=== PATIENT | female | born 1965 | race African-American/Black ===

== ENCOUNTER 2024-06-29 07:34 | Outpatient (CLI) | payer MEDICARE, MEDICAID, SELFPAY ==
--- NOTE | 2024-06-29 10:21 | PCM.OPRPT ---
Operative Report (Standard) Operative Information Date of Procedure: 06/29/24 Pre-Operative Diagnosis: End-stage renal disease Post-Operative Diagnosis: Same Surgery/Procedure Performed: Bilateral upper extremity venogram bioprocess engineer: No Type of Anesthesia: None Procedure Start Time: 09:00 Procedure Stop Time: 09:30 Select all DRAINS/GRAFTS/IMPLANTS that apply: None Estimated Blood Loss: 1 Specimen collected: No Description of surgery: HPI: Patient is a 59-year-old female with end-stage renal disease currently on dialysis via right femoral tunneled catheter. She has had multiple upper extremity access procedures in the past all of which have subsequently failed. 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 She presents now for venogram to assess the central system for patency and determine any possible access options. Description of procedure: Upon obtaining form consent and verification correct patient procedure site the patient was taken to the [facility] where she was positioned prepped and draped in usual sterile fashion. Timeout was performed and the patient requested no sedation be given at the onset of the procedure unless necessary. Patient had a right antecubital IV through which hand-injection subtraction venography of the upper arm and central vasculature was performed. This revealed significant tortuosity and collaterals in the upper arm with abrupt occlusion in the proximal third and large collaterals which appeared to empty into the chest wall. There was no contrast opacification of the axillary subclavian veins or the innominate or superior vena cava. Next hand-injection subtraction venography of the left upper extremity was performed via a forearm IV. This again revealed significant collateral vessels filling of the brachial vein and axillary vein lateral to the chest wall. Again there is no visualization supra vena cava the innominate the axillary subclavian vein. Once adequate imaging was obtained the patient was taken to the recovery area with plan discharged to home. Surgical Findings: See above Complications Complications: No
== END 2024-06-29 09:59 | disposition home or self-care (01) ==
PROVIDERS: Referring Provider Surgery Trauma Surgery; Visit Provider Surgery Trauma Surgery
DX: N18.6 End stage renal disease (principal); Z89.611 Acquired absence of right leg above knee; Z89.612 Acquired absence of left leg above knee; Z99.2 Dependence on renal dialysis; Z87.891 Personal history of nicotine dependence
CPT/HCPCS: 36005; 75822; Q9967